=== PATIENT | male | born 1980 | race Caucasian/White ===

== ENCOUNTER → 2025-01-14 06:38 | Outpatient (REF) | payer OTHER, SELFPAY ==
[2025-01-14 07:35] LABS: Hematocrit 43.6 % (39.0-52.0); Hemoglobin 14.8 g/dL (13.0-18.0); Mean Corp Hgb Conc. 33.9 g/dL (33.0-37.0); Mean Corpuscular Volume 92.4 fL (80.0-94.0); Nucleated Red Blood Cells % 0 % (-); Platelet Count 283 10^3/uL (130-400); Red Cell Dist. Width 13.0 % (11.5-14.5)
[2025-01-14 07:54] LABS: Urine Character Clear (Clear)
[2025-01-14 07:57] LABS: Glycohemoglobin (HgbA1c) 5.0 % (4.0-5.9)
[2025-01-14 08:00] LABS: ALT (SGPT) 41 U/L (0-50); AST (SGOT) 24 U/L (17-59); Albumin 4.5 g/dl (3.5-5.0); Alkaline Phosphatase 84 U/L (38-126); Blood Urea Nitrogen 17 mg/dl (9-20); Calcium 9.6 mg/dl (8.4-10.2); Carbon Dioxide 29 mmol/L (22-30); Chloride 101 mmol/L (98-107); Glucose 88 mg/dl (70-99); HDL Cholesterol 39 mg/dl; LDL Cholesterol, Calculated 129 mg/dl; Potassium 4.2 mmol/L (3.5-5.1); Sodium 135 mmol/L (135-145); Total Protein 7.3 g/dl (6.3-8.2); Very Low Density Lipoprotein 23 mg/dl (0-30); eGFR > 60.00
[2025-01-14 08:23] LABS: Urine Urothelial Cell 0-2 /LPF (FEW)
[2025-01-14 08:24] LABS: Urine White Cell 0-2 /HPF (0-5)
[2025-01-14 08:42] LABS: PSA, Total - Screen 0.73 ng/ml (0.0-4.0)
== END ==
LOC: REG 06:38
PROVIDERS: ATTENDING PHYSICIAN Internal Medicine
DX: Z13.6 Encounter for screening for cardiovascular disorders (principal); Z13.1 Encounter for screening for diabetes mellitus; K75.1 Phlebitis of portal vein; E86.0 Dehydration; Z12.5 Encounter for screening for malignant neoplasm of prostate
CPT/HCPCS: 36415; 80053; 80061; 81003; 81015; 83036; 85025; G0103